=== PATIENT | male | born 1990 | race Caucasian/White ===

== ENCOUNTER 2018-07-04 08:39 | Emergency (ER) | payer SELFPAY ==
[2018-07-04 09:09] VITALS: BP 148/98; PULSE 89; TEMP 98.9; BMI 30.9
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
== END 2018-07-04 11:23 | disposition home or self-care (01) ==
LOC: JERFT 08:39
DX: S05.11XA Contusion of eyeball and orbital tissues, right eye, initial encounter (principal); R22.0 Localized swelling, mass and lump, head; W50.0XXA Accidental hit or strike by another person, initial encounter; Y93.89 Activity, other specified; Y92.89 Other specified places as the place of occurrence of the external cause
CPT/HCPCS: 70450-TC; 70480-TC; 99281-25